=== PATIENT | female | born 1970 | race Two or more races ===

== ENCOUNTER 2023-07-15 17:03 | Emergency (ER) | payer MEDICAID, OTHER ==
[~2023-07-15] VITALS: Ht 157.5 cm; Wt 66.5 kg
[2023-07-15] MEDS ORDERED: HYDROcodone-ACET 5/325MG TAB PO ONE (20:30)
[2023-07-15] MEDS ORDERED: KETOROLAC TROMETH 60MG/2ML VIAL IM ONE (20:30)
[2023-07-15] MEDS ORDERED: IBUP1TAB5 PO (21:07)
[2023-07-15] MEDS ORDERED: CYCL-839 PO (21:07)
[2023-07-15] MEDS ORDERED: MUPI2OIN2 EX (21:07)
[2023-07-15] MEDS ORDERED: DOXY-346 PO (21:07)
[2023-07-15] MEDS ORDERED: NEOMYCIN-BACITRACIN-POLYM 15GM TOP OINT TOP SCH (22:00)
[2023-07-15 23:22] VITALS: BP 127/81; PULSE 71; RESP 18; TEMP 97.9; O2SAT 95
== END 2023-07-15 23:38 | disposition home or self-care (01) ==
LOC: ER 17:03
DX: S43.401A Unspecified sprain of right shoulder joint, initial encounter (principal); S33.5XXA Sprain of ligaments of lumbar spine, initial encounter; S83.91XA Sprain of unspecified site of right knee, initial encounter; S20.211A Contusion of right front wall of thorax, initial encounter; S50.811A Abrasion of right forearm, initial encounter; V49.9XXA Car occupant (driver) (passenger) injured in unspecified traffic accident, initial encounter; W22.10XA Striking against or struck by unspecified automobile airbag, initial encounter; Y93.89 Activity, other specified; Y92.89 Other specified places as the place of occurrence of the external cause; Y99.8 Other external cause status
CPT/HCPCS: 71111; 72100; 73030; 73090; 73562; 96372; 99284; J1885